=== PATIENT | male | born 1945 | race Hispanic/Latino ===

== ENCOUNTER 2018-12-08 11:29 | Day surgery (SDC) | payer MEDICARE ==
[~2018-12-08 11:29] MED LIST: IOPIDINE ONE; MYDRIACYL ONE; NEOFRIN ONE
[2018-12-08] MEDS ORDERED: NEOFRIN OD ONE (11:58)
[2018-12-08] MEDS ORDERED: MYDRIACYL OD ONE (11:58)
[2018-12-08] MEDS ORDERED: IOPIDINE OD ONE ×2 (11:58→12:26)
[2018-12-08 12:32] VITALS: BP 139/74
== END 2018-12-08 12:21 | disposition home or self-care (01) ==
LOC: OR 11:29
PROVIDERS: ATTEND Specialist
DX: H26.491 Other secondary cataract, right eye (principal); I25.10 Atherosclerotic heart disease of native coronary artery without angina pectoris; I10 Essential (primary) hypertension; E78.00 Pure hypercholesterolemia, unspecified; J44.9 Chronic obstructive pulmonary disease, unspecified; M32.9 Systemic lupus erythematosus, unspecified; I73.9 Peripheral vascular disease, unspecified; F17.200 Nicotine dependence, unspecified, uncomplicated; Z79.82 Long term (current) use of aspirin; Z79.899 Other long term (current) drug therapy; Z72.89 Other problems related to lifestyle; Z98.49 Cataract extraction status, unspecified eye; Z86.73 Personal history of transient ischemic attack (TIA), and cerebral infarction without residual deficits; Z98.890 Other specified postprocedural states

== ENCOUNTER 2018-12-15 11:54 | Day surgery (SDC) | payer MEDICARE ==
[~2018-12-15 11:54] MED LIST changes: +IOPIDINE OS ONE; +MYDRIACYL OS ONE; +NEOFRIN OS ONE
[2018-12-15] MEDS ORDERED: NEOFRIN OS ONE (12:12)
[2018-12-15] MEDS ORDERED: IOPIDINE OS ONE ×2 (12:12→12:32)
[2018-12-15] MEDS ORDERED: MYDRIACYL OS ONE (12:12)
[2018-12-15 12:35] VITALS: BP 127/72
== END 2018-12-15 12:36 | disposition home or self-care (01) ==
LOC: OR 11:54
PROVIDERS: ATTEND Specialist
DX: H26.492 Other secondary cataract, left eye (principal); F17.210 Nicotine dependence, cigarettes, uncomplicated; E78.2 Mixed hyperlipidemia; I44.7 Left bundle-branch block, unspecified; I25.10 Atherosclerotic heart disease of native coronary artery without angina pectoris; E78.00 Pure hypercholesterolemia, unspecified; I10 Essential (primary) hypertension; J44.9 Chronic obstructive pulmonary disease, unspecified; Z72.89 Other problems related to lifestyle; Z79.82 Long term (current) use of aspirin; Z79.899 Other long term (current) drug therapy; Z98.49 Cataract extraction status, unspecified eye; Z86.73 Personal history of transient ischemic attack (TIA), and cerebral infarction without residual deficits; Z98.890 Other specified postprocedural states

== ENCOUNTER 2019-02-01 06:05 | Day surgery (SDC) | payer MEDICARE ==
[2019-02-01] MEDS ORDERED: NACL 0.9% 500 ML 500 ML IV SCH (07:00)
[2019-02-01 07:09] LABS: Basophils # (Auto) 0.1 K/mm3 (0.0-0.1); Eosinophils # (Auto) 0.1 K/mm3 (0.0-0.4); Hematocrit 40.2 % (35.5-45.6); Hemoglobin 13.9 gm/dl (11.8-15.2); Lymphocytes # (Auto) 1.8 K/mm3 (1.2-5.4); Lymphocytes % (Auto) 22.8 % (13.4-35.0); Mean Corpuscular HGB Conc 35 % (32-34); Mean Corpuscular Volume 99 fl (84-94); Monocytes # (Auto) 0.7 K/mm3 (0.0-0.8); Platelet Count 223 K/mm3 (140-440); Red Blood Count 4.05 M/mm3 (3.65-5.03)
[2019-02-01 07:26] LABS: INR 0.93 (0.87-1.13)
[2019-02-01 07:34] LABS: BUN/Creatinine Ratio 28; Blood Urea Nitrogen 22 mg/dL (9-20); Calcium 8.8 mg/dL (8.4-10.2); Hemolysis Index 30
[2019-02-01] MEDS ORDERED: HEPARIN 10,000 UNITS/10 ML ONE (08:13)
[2019-02-01] MEDS ORDERED: HEPARIN/NS 5000 UNIT/500ML(CATH LAB) 1,000 ML IR ONE (08:13)
[2019-02-01] MEDS ORDERED: VERSED ONE (08:13)
[2019-02-01] MEDS ORDERED: SUBLIMAZE ONE (08:13)
[2019-02-01] MEDS ORDERED: XYLOCAINE 2% INFILTRATI ONE (08:13)
[2019-02-01] MEDS ORDERED: CALAN ONE (08:13)
[2019-02-01] MEDS ORDERED: NITROGLYCERIN SYRINGE 3 ML ONE (08:14)
--- NOTE | 2019-02-01 10:12 | Short Stay Summary ---
Short Stay Documentation Date of service: 02/01/19 - Allergies and Medications Current Medications: Allergies No Known Allergies Allergy (Verified 09/02/16 08:05) Home Medications Medication Instructions Recorded Confirmed Last Taken Type Hydroxychloroquine [Plaquenil] 200 mg PO DAILY 09/02/16 02/01/19 01/31/19 History Simvastatin 40 mg PO DAILY 09/02/16 02/01/19 01/31/19 History Furosemide [Lasix] 20 mg PO QDAY 12/08/18 02/01/19 01/31/19 History ISOSORBIDE MONOnitrate [Imdur ER] 30 mg PO DAILY 12/08/18 02/01/19 01/31/19 History Ibuprofen [Motrin 800 MG tab] 800 mg PO PRN PRN 12/08/18 02/01/19 12/14/18 History Losartan [Cozaar] 100 mg PO QDAY 12/08/18 02/01/19 01/31/19 History Metoprolol [Lopressor] 50 mg PO DAILY 12/08/18 02/01/19 01/31/19 History Tapentadol HCl [Nucynta] 100 mg PO DAILY 12/08/18 02/01/19 01/31/19 History Umeclidinium Brm/Vilanterol Tr 1 puff IH DAILY 12/08/18 02/01/19 01/31/19 History [Anoro Ellipta 62.5-25 Mcg INH] Aspirin [Lo-Dose Aspirin EC] 81 mg PO DAILY 02/01/19 02/01/19 02/01/19 06:35 History Active Medications Sodium Chloride (Nacl 0.9% 500 Ml) 500 mls @ 50 mls/hr IV DIRECT SHERI Stop: 02/01/19 16:59 Last Admin: 02/01/19 07:17 Dose: 50 mls/hr Documented by: - Brief post op/procedure progress note Date of procedure: 02/01/19 Pre-op diagnosis: cardiomyopathy Post-op diagnosis: same Procedure: see report Anesthesia: local Estimated blood loss: none Pathology: none - Disposition Condition at discharge: Good Disposition: [id number] TO HOME OR SELFCARE - Discharge Diagnoses (1) CAD (coronary artery disease) Status: Chronic Qualifiers: Coronary Disease-Associated Artery/Lesion type: [place] artery Associated angina: without angina (2) Cardiomyopathy Status: Chronic Qualifiers: Cardiomyopathy type: dilated Qualified Code(s): I42.0 - Dilated cardiomyopathy (3) Hyperlipemia, mixed Status: Chronic (4) Left bundle branch block (LBBB) Status: Chronic (5) PAD (peripheral artery disease) Status: Chronic (6) Smoker unmotivated to quit Status: Chronic Short Stay Discharge Plan Activity: advance as tolerated Diet: regular, low fat, low cholesterol, low salt Wound: keep clean and dry Follow up with: ADELAIDE AMEZQUITA MD [Primary Care Provider] - 7 Days
--- NOTE | 2019-02-01 12:16 | Cardiac Catherization Report ---
LEFT HEART CATHETERIZATION PROCEDURE: This left heart catheterization being done by Dr. Navdeep Granado. CLINICAL INFORMATION: This is a 73-year-old gentleman with left bundle branch block with decrease in LV function despite medical therapy, has nonobstructive coronary artery disease based on catheterization done 3 years ago, which he had normal LV function, so left heart catheterization done with moderate sedation. Total sedation time was 15 minutes, started 9:09 a.m. and finished at 9:24 a.m., 1 mg of Versed, 50 mcg of fentanyl. Left heart catheterization performed in the right radial artery, sterile technique, local anesthesia, 6-Mongolian radial sheath inserted. Left main is large and patent, bifurcates into large LAD, proximal same. Diagonal 1 is a [id number] caliber vessel, has an ostial 80%-90% lesion. No change from previous cath and mid LAD 30%. Rest of LAD is large and patent. Circumflex is a large caliber vessel, patent with mild luminal irregularities. OM1 and OM2 are medium caliber vessels, patent with mild luminal irregularities. RCA engaged with JR4, is a large dominant vessel, proximal 20% lesion, mid to distal patent with bifurcating medium caliber PDA is patent. LV gram done in RENETTA and ROMEO view shows [id number] LV dysfunction, EF 25%-30%. LVEDP of 24 mmHg, LV is 155/24. Aortic is 158/71. No gradient across the aortic valve on pullback. 5-Mongolian catheters all taken over guidewire, 6-[place]ongolian radial sheath was discontinued. Radial band applied. No hematoma, no bleeding. SUMMARY: 1. No change angiographically from previous catheterization in 2016. Left main patent, LAD mid 30%, diagonal 1 ostial 80%-90%, circ patent. OM1 and OM2 patent. RCA proximal is 20%. 2. Moderate to severe LV dysfunction of 25%-30%. LVEDP 24 mmHg. 3. Cardiomyopathy is out of proportion for coronary artery disease. JOB# [id number] LIANE/NTS
[2019-02-01 12:47] VITALS: BP 147/76
== END 2019-02-01 12:45 | disposition home or self-care (01) ==
LOC: CATHLABREC 06:05
PROVIDERS: ATTEND Internal Medicine
DX: I25.10 Atherosclerotic heart disease of native coronary artery without angina pectoris (principal); I42.0 Dilated cardiomyopathy; E78.2 Mixed hyperlipidemia; I10 Essential (primary) hypertension; I71.4 Abdominal aortic aneurysm, without rupture; F17.210 Nicotine dependence, cigarettes, uncomplicated; I73.9 Peripheral vascular disease, unspecified; J44.9 Chronic obstructive pulmonary disease, unspecified; Z98.890 Other specified postprocedural states; Z79.899 Other long term (current) drug therapy; Z79.82 Long term (current) use of aspirin; Z98.49 Cataract extraction status, unspecified eye; Z72.89 Other problems related to lifestyle; Z86.73 Personal history of transient ischemic attack (TIA), and cerebral infarction without residual deficits
CPT/HCPCS: 36415; 80048; 85025; 85610; 93005; 93010; 93458; 99156; C1894; J1644; J2250; J3010; J7040; Q9967